=== PATIENT | female | born 1990 | race Caucasian/White ===

== ENCOUNTER → 2017-10-03 10:15 | Outpatient (CLI) | payer SELFPAY ==
[2017-10-03 12:02] LABS: Free T3 4.1 pg/mL (2.18-3.98)
== END ==
PROVIDERS: Family Provider Family Medicine; PCP Family Medicine
DX: E03.9 Hypothyroidism, unspecified (principal)
CPT/HCPCS: 36415; 84481

== ENCOUNTER → 2020-04-20 10:24 | Outpatient (CLI) | payer MEDICAID, SELFPAY ==
[2020-02-22 15:16] VITALS: BMI 34.2
[2020-04-20 12:39] LABS: Thyroid Stim Hormone (TSH) 0.94 uIU/mL (0.358-3.74)
== END ==
PROVIDERS: PCP Family Medicine; Referring Provider Internal Medicine Endocrinology, Diabetes & Metabolism; Visit Provider Internal Medicine Endocrinology, Diabetes & Metabolism
DX: E03.8 Other specified hypothyroidism (principal); E06.3 Autoimmune thyroiditis
CPT/HCPCS: 36415; 84439; 84443

== ENCOUNTER 2020-11-02 21:08 | Emergency (ER) | payer MEDICAID, SELFPAY ==
[2020-02-22 15:16] VITALS: BMI 34.2
[2020-11-02 21:09] VITALS: BP 103/69; PULSE 90; RESP 16; TEMP 36.2; O2SAT 98; BMI 41.9
[2020-11-02 21:33] LABS: Mucous, Urine 0 SEEN /hpf (<or=2+); Red Blood Cells-Urine 0 SEEN /hpf (0-5); White Blood Cells 0 SEEN /hpf (0-5)
[2020-11-02 21:42] LABS: Color, Urine Yellow (Yellow); Glucose, Dipstick Normal (Normal); Ketone-Dipstick 5 mg/dl (Negative); Leukocyte Esterase-Dipstick Negative /ul (Negative); Nitrite-Dipstick Negative (Negative); Occult Blood-Urine Negative /ul (Negative); Protein-Dipstick Negative (Negative); Specific Gravity, Urine 1.015 (1.002-1.030); Urine Bilirubin Dipstick Negative (Negative); Urine Clarity Sl. Cloudy (Clear); Urine Urobilinogen Normal (Normal)
--- NOTE | 2020-11-02 21:59 | CT_ITS ---
INDICATION: Lower abd pain EXAMINATION: CT Abdomen And Pelvis W/O Contrast Injection TECHNIQUE: Helically acquired images were obtained of the abdomen and pelvis without the use of IV contrast. A radiation dose optimization technique was used for this scan. Oral contrast: None. COMPARISON: None FINDINGS: Evaluation of the solid organs and vascular structures is limited without intravenous contrast. Visualized lung bases: Ground glass opacities in the lung bases. Liver: Unremarkable Gallbladder: Surgically absent. Spleen: Unremarkable Pancreas: Unremarkable Adrenal Glands: Unremarkable Kidneys: Unremarkable Vasculature: Unremarkable GI Tract: Scattered diverticula throughout the colon without evidence of inflammation. The appendix is not visualized. Lymphadenopathy: None Peritoneum: No ascites. Bladder: Unremarkable Reproductive organs: 4.6 x 6.7 cm thin walled cystic lesion in the right adnexa, most likely originating from the right ovary. Bones/Soft tissues: Mild scattered degenerative changes of the visualized spine. CT/Abdomen/Pelvis without Cont IMPRESSION: 7 cm cystic lesion in the right ovary is indeterminate. Recommend pelvic US for further evaluation. Groundglass opacities in the bilateral lung bases could represent infection and/or edema. Diverticulosis. Electronically Signed: Tong Alegria MD at 23:33 EDT Tel , Service support ,
[2020-11-02 22:03] LABS: Bacteria 1+ /hpf (None Seen); Squamous Epithelial Cells - UA 5-10 SEEN /hpf (5-10)
[2020-11-02] MEDS: 0.9% Normal Saline 1,000 ML 1000 ML IV (22:13)
[2020-11-02] MEDS: Ondansetron 4 MG/2 ML Vial IV (22:14)
[2020-11-02] MEDS: Morphine 4 MG/ML Syringe IV (22:14)
[2020-11-02 22:28] LABS: Absolute Lymphocyte Count 2.19 X10^3/uL (0.83-4.51); Absolute Neutrophil Count 5.8 X10^3/uL (2.0-7.7); Basophil# 0.03 X10^3/uL; Basophil% 0.3 % (0-1); Eosinophil# 0.21 X10^3/uL; Eosinophils% 2.4 % (0-5); Hematocrit 43.5 % (37-47); Hemoglobin 14.3 g/dL (12.0-15.0); Lymphocyte # 2.19 X10^3/ul (0.83-4.51); Lymphocyte % 24.9 % (19-41); Mean Corp Hgb Conc 32.9 g/dL (32-36); Mean Corpuscular Hgb 30.4 pg (27.0-32.0); Mean Corpuscular Volume 92.6 fL (81-99); Mean Platelet Vol. 10.7 fl (6.2-12.0); Monocyte# 0.57 X10^3/uL; Monocyte% 6.5 % (0-10); NRBC Flagged by Analyzer 0 % (0-5); Neutrophil # 5.75 X10^3/uL (2.7-7.7); Neutrophil % 65.6 % (47-70); Platelet Count 158 K/mm3 (150-450); RBC Distribution Width CV 12.4 % (11.6-14.6); RBC Distribution Width SD 42.4 fl (35.1-43.9); White Blood Count 8.8 K/mm3 (4.4-11.0)
[2020-11-02 22:29] LABS: POSITIVE COUNT NO; POSITIVE DIFFERENTIAL NO; POSITIVE MORPHOLOGY NO
[2020-11-02 22:41] LABS: Internal QC Validated? YES +Cl - CLEAR BKGD; Pregnancy, Serum, hCG Quali. NEGATIVE Negative
[2020-11-02 22:50] LABS: AST(SGOT) 20 U/L (15-37); Alanine Aminotransfer ALT/SGPT 35 U/L (13-56); Albumin, Serum 3.2 g/dL (3.2-5.0); Alkaline Phosphatase 97 U/L (45-117); Anion Gap 6 (5-15); BUN 9 mg/dL (7-18); BUN/Creat Ratio 12.1 RATIO (10-20); Calcium,Total 8.4 mg/dL (8.5-10.1); Chloride 109 mmol/L (98-107); Creatinine, Serum 0.74 mg/dL (0.55-1.02); EST Glomerular Filtration Rate 96 mL/min (>60); Est Glom Filt Rate - Afr Amer 116 mL/min (>60); Estimated Creatinine Clearance 102.17 ml/min; Globulin 3.2 g/dL (2.2-4.2); Glucose 85 mg/dL (74-106); Potassium 3.4 mmol/L (3.5-5.1); Protein, Total 6.4 g/dL (6.4-8.2); Sodium Level 142 mmol/L (136-145)
--- NOTE | 2020-11-03 00:08 | EDS_ITS ---
HPI HPI - GI History of Present Illness Chief Complaint: Abd Pain Narrative Narrative: 30-year-old female reports that she has abdominal pain again 10 days ago. It is gradually gotten worse. It is aching, cramping pain is 10 out of 10 in severity. She states is worsened by lifting heavy stuff. She relieved by a hot water bottle. She had nausea without vomiting. She had 1 episode of diarrhea. No blood in her stools or black tarry stools. No dysuria or frequency. She reports her last menstrual period was 4 weeks ago. No vaginal bleeding or discharge. Patient reports that she went to a different emergency department yesterday and had blood work and a UA that were negative. She did not have a CT. She does report she had similar symptoms previously. She had a colonoscopy [address] Yonis Russo. [facility] Medical History (Updated 11/03/20 @ 00:[address] Edy Pace MD) Gastrointestinal allergy syndrome Headache Hx of back injury Hx of hearing loss Hx: UTI (urinary tract infection) Hypothyroidism PTSD (post-traumatic stress disorder) Seizure Home Medications clobazam 10 mg tablet 10 mg PO DAILY 02/22/20 [History Last Taken Unknown] clonazepam 0.5 mg tablet 0.5 mg PO DAILY 02/22/20 [History Last Taken Unknown] prazosin 2 mg capsule 2 mg PO QHS 02/22/20 [History Last Taken Unknown] topiramate 200 mg capsule,extended release 24 hr 200 mg PO BID cap 02/22/20 [History Last Taken Unknown] hydrocodone-acetaminophen 1 tab PO Q6H PRN 3 Days #10 tab 11/03/20 [Rx Last Taken Unknown] naproxen 500 mg PO BID #14 tab 11/03/20 [Rx Last Taken Unknown] Allergy/AdvReac Type Severity Reaction Status Date / Time No Known Allergies Allergy Unverified 11/02/20 21:11 Family History Other Anxiety CVA (cerebral vascular accident) Depression Heart disease Hypertension Surgical History Hx of cholecystectomy Social History Smoking Status: Current some day smoker alcohol intake: former substance use type: does not use ROS ROS ED Constitutional Constitutional ED: Denies chills, fever(s) or sweats Eyes Eyes: Denies change in vision ENT ENT ED: Denies sore throat Cardiovascular Cardiovascular: Denies chest pain Respiratory/Chest Respiratory/Chest: Denies cough, dyspnea or dyspnea on exertion Gastrointestinal Gastrointestinal: Reports abdominal pain, diarrhea, nausea and vomiting; Denies melena Genitourinary Genitourinary ED: Denies dysuria or urinary frequency Musculoskeletal Musculoskeletal: Denies myalgias Integumentary Denies rash Neurologic Neurologic: Denies headache(s), paresthesias or weakness EXAM Physical Exam Const Vital Signs: 11/02/20 21:09 Temperature 97.2 F L Temperature Source Temporal Pulse Rate 90 Respiratory Rate 16 Blood Pressure 103/69 Blood Pressure Mean 80 Pulse Ox 98 Oxygen Delivery Method Room Air Positive well nourished and well developed General Appearance ED: well developed HEENT Reports normocephalic and head/scalp atraumatic Eyes PERRL Neck no lymphadenopathy, supple and no JVD General: Negative for tenderness Resp normal respiratory effort and clear to auscultation bilaterally Cardio regular rate, regular rhythm and no murmurs GI normal to inspection, nondistended, normoactive bowel sounds and non-distended GI Narrative: Moderate diffuse tenderness palpation that is worst over the lower abdomen. There is no localized pain in the right lower quadrant. No guarding, rebound, or peritoneal signs. Auscultation: normoactive bowel sounds Palpation: soft Back/Spine Back/Spine Narrative: Nontender. Extremity General Extremety ED: Negative for edema or tenderness General Extremity: Negative for edema Neuro oriented x3, CN's II-XII intact bilaterally and no sensory deficits noted Sensorium / Orientation: alert Motor Exam: strength 5/5 throughout Psych mental status grossly normal Skin no rashes or lesions noted MDM MDM Lab Data Labs: Laboratory Results - last 24 hr 11/02/20 11/02/20 11/02/20 21:25 22:20 22:20 WBC 8.8 RBC 4.70 Hgb 14.3 Hct 43.5 MCV 92.6 MCH 30.4 MCHC 32.9 RDW Std Deviation 42.4 RDW Coeff of Bj 12.4 Plt Count 158 MPV 10.7 Immature Gran % (Auto) 0.300 Neut % (Auto) 65.6 Lymph % (Auto) 24.9 [place] % (Auto) 6.5 Eos % (Auto) 2.4 Baso % (Auto) 0.3 Absolute Neuts (auto) 5.8 Absolute Lymphs (auto) 2.19 Nucleated RBC % 0 Sodium 142 Potassium 3.4 L Chloride 109 H Carbon Dioxide 27.0 Anion Gap 6 BUN 9 Creatinine 0.74 Estim Creat Clear Calc 102.17 Est GFR (MDRD) Af Amer 116 Est GFR (MDRD) Non-Af 96 BUN/Creatinine Ratio 12.1 Glucose 85 Calcium 8.4 L Total Bilirubin 0.40 AST 20 ALT 35 Alkaline Phosphatase 97 Total Protein 6.4 Albumin 3.2 Globulin 3.2 Albumin/Globulin Ratio 1.0 Serum , Qual Urine Color Yellow Urine Clarity Sl. Cloudy Urine pH 8.0 Ur Specific [place] 1.015 Urine Protein Negative Urine Glucose (UA) Normal Urine Ketones 5 H Urine Occult Blood Negative Urine Nitrite Negative Urine Bilirubin Negative Urine Urobilinogen Normal Ur Leukocyte Esterase Negative Urine RBC 0 SEEN Urine WBC 0 SEEN Ur Squamous Epith Cells 5-10 SEEN Urine Bacteria 1+ Urine Mucus 0 SEEN 11/02/20 22:20 WBC RBC Hgb Hct MCV MCH MCHC RDW Std Deviation RDW Coeff of Bj Plt Count MPV Immature Gran % (Auto) Neut % (Auto) Lymph % (Auto) [place] % (Auto) Eos % (Auto) Baso % (Auto) Absolute Neuts (auto) Absolute Lymphs (auto) Nucleated RBC % Sodium Potassium Chloride Carbon Dioxide Anion Gap BUN Creatinine Estim Creat Clear Calc Est GFR (MDRD) Af Amer Est GFR (MDRD) Non-Af BUN/Creatinine Ratio Glucose Calcium Total Bilirubin AST ALT Alkaline Phosphatase Total Protein Albumin Globulin Albumin/Globulin Ratio Serum , Qual NEGATIVE Urine Color Urine Clarity Urine pH Ur Specific [place] Urine Protein Urine Glucose (UA) Urine Ketones Urine Occult Blood Urine Nitrite Urine Bilirubin Urine Urobilinogen Ur Leukocyte Esterase Urine RBC Urine WBC Ur Squamous Epith Cells Urine Bacteria Urine Mucus Radiography Diagnostic Testing: Radiology Impression Abdomen/Pelvis CT 11/02/20 21:59 IMPRESSION: 7 cm cystic lesion in the right ovary is indeterminate. Recommend pelvic US for further evaluation. Groundglass opacities in the bilateral lung bases could represent infection and/or edema. Diverticulosis. Electronically Signed: Tong Alegria MD at 23:33 EDT Tel , Service support , Treatment and Re-Evaluation Comments:: Emergency department course: Patient was initially treated with morphine and Zofran IV. She continued to experience pain she. She was given Toradol IV. She is resting more comfortably. Treatment plan: Patient does not have a registered respiratory technician. She will be discharged with naproxen and [place]. Instructed to follow-up Dr. John Russo within 3 to 5 days for another exam. She has had gradually increasing pain over the course of 10 days. I do not think that this represents an ovarian torsion. I do not think that calling an ultrasound at this time of night is indicated. Return to the emergency department for any worsening symptoms. Disposition: To home in improved and stable condition. Discharge Plan Triage Chief Complaint: Abd Pain ED Provider: Edy Pace Dx/Rx/DC Orders Clinical Impression: Ovarian cyst Instructions: ED Ovarian Cyst Prescriptions: New hydrocodone-acetaminophen 5-325 mg tablet 1 tab PO Q6H PRN (Reason: pain) 3 Days Qty: 10 RF: 0 naproxen 500 MG tablet 500 mg PO BID Qty: 14 RF: 0 No Action clobazam 10 mg tablet 10 mg PO DAILY RF: 0 clonazepam [Klonopin] 0.5 mg tablet 0.5 mg PO DAILY RF: 0 prazosin 2 mg capsule 2 mg PO QHS RF: 0 topiramate 200 mg capsule,extended release 24hr 200 mg PO BID RF: 0 Primary Care Provider: Julián Garcia Referrals: Julián Garcia MD [Primary Care Provider] - oJhn Russo MD [STAFF PHYSICIAN] - 3-5 Days
[2020-11-03 00:18] VITALS: RESP 14
== END 2020-11-03 00:35 | disposition home or self-care (01) ==
LOC: ED 22:00
PROVIDERS: Emergency Provider Emergency Medicine; PCP Family Medicine
DX: N83.201 Unspecified ovarian cyst, right side (principal); E03.9 Hypothyroidism, unspecified; F43.10 Post-traumatic stress disorder, unspecified; G40.909 Epilepsy, unspecified, not intractable, without status epilepticus; Z87.440 Personal history of urinary (tract) infections; Z79.899 Other long term (current) drug therapy
CPT/HCPCS: 74176; 80053; 81001; 84703; 85025; 96361; 96374; 96375; 99282; J7030; A4216; J2405

== ENCOUNTER 2020-11-20 06:07 | Day surgery (SDC) | payer MEDICAID, SELFPAY ==
[2020-11-20] VITALS (8 sets, daily range): BP systolic 97–112; BP diastolic 58–82; PULSE 55–93; RESP 16; TEMP 36.2–36.7; O2SAT 98–100; BMI 39.8
[2020-11-20] MEDS: Lactated Ringers 1,000 ML 120 ML IV ×2 (06:45→08:36)
[2020-11-20 06:49] LABS: Internal QC Validated? YES +Cl - CLEAR BKGD; Pregnancy, Urine Negative Negative
[2020-11-20 07:05] LABS: International Normalized Ratio 1.1; Prothrombin Time (Protime)PT. 13.1 SECONDS (11.7-14.9)
--- NOTE | 2020-11-20 07:26 | PCM.HP.BLA ---
History and Physical Date of Admission: 11/20/20 Chief complaint: Abdominal pain History of present illness: 30-year-old G0 arrived to ER with diffuse abdominal pain found on CT to have ovarian cyst. Arrived to office with abdominal pain right greater than the left and found to have ovarian cyst. Patient denies headache, chest pain, shortness of breath, nausea vomiting, diarrhea, constipation, weight loss, fevers, chills. Obstetric history: G0 Past medical history: Epilepsy Medications: Clobazam, Klonopin, prazosin, medical marijuana Past surgical history: Laparoscopic cholecystectomy Social history half pack per day smoker, medical marijuana use, denies alcohol use Allergies: No known drug allergies Family history: Denies history of DVT or PE Review of systems: Besides above pertinent positives a full review of systems was performed found to be negative Physical exam: Vitals: Blood pressure 106/74 pulse 73 respiratory rate 16 temperature 97.7 pulse ox 99% on room air General: Normal-appearing no acute distress HEENT: Normocephalic atraumatic no cervical lymphadenopathy Cardiac/respiratory: No use of accessory muscles nonlabored breathing Abdomen: Soft, mildly tender in bilateral lower quadrants right greater than left, no rebound tenderness or guarding, positive bowel sounds Extremities: No peripheral edema normal peripheral pulses Psych: Normal affect normal demeanor nonpressured speech Assessment and plan: 30-year-old G0 with abdominal pain found to have 7 cm right ovarian cyst with flow to both ovaries. Today for diagnostic laparoscopy, right ovarian cystectomy. Patient understands the risk of the procedure include but are not limited to visceral or vascular injury, prolonged hospitalization, blood loss need for transfusion, reoperation. Patient states understanding wish to proceed. All questions answered consent was signed.
--- NOTE | 2020-11-20 07:30 | CYST_PTH ---
PATIENT: GABRIELLA COLLINS LOC: [facility] [place][id number] AGE/SX: 30/F ROOM: RE11/20/[address]: Dr. John Russo MD : 1990 BED: DIS: 11/20/2020 SPEC #: [id number] RECD: 11/20/20 10:09 STATUS: ANTON PEDRO #: [id number] TI: 11/20/20 07:[address]: John Russo DEPT: SURGICAL PATHOLOGY RECD BY: Kassidy Jones ENTERED: 11/20/20 12:09 SP TYPE: Cyst OTHR DR: Dr. Julián Garcia MD Tissues: OVARIAN CYST Procedures: Surgery Specimen Level IV HEADER OPERATION: Diagnostic laparoscopy, ovarian cystectomy PRE-OP DIAGNOSIS: Ovarian cyst TISSUE SUBMITTED: Right ovarian cyst MICROSCOPIC DIAGNOSIS Right ovarian cyst, cystectomy: Consistent with physiologic follicular cysts. SJ:tahmina 11/21/2020 MICROSCOPIC DESCRIPTION Slides are reviewed. GROSS DESCRIPTION Received in fixative is one container labeled with the patient's name and designated right ovarian cyst. The specimen consists of two pieces of tissue consistent with portion of previously opened cyst. The larger piece measures 3 x 3 x 1 cm and appears to consist of biloculated cyst. The outer surface is inked. The smaller piece measures 3 x 0.5 x 0.1 cm. Both pieces are serially sectioned. The entire specimen is submitted in three cassettes. / SJ:tahmina 11/20/20 TC:5 [facility]: [id number]
[2020-11-20 07:54] LABS: Thyroid Stim Hormone (TSH) < 0.01 uIU/mL (0.358-3.74)
--- NOTE | 2020-11-20 08:23 | PCM.DC ---
Discharge Instructions Diet Discharge Diet: No restrictions Activity Discharge Activity: Return to Normal Activity, May Drive, May Shower and - (No tub baths for 2 weeks) May resume sexual activity in: 4-6 weeks Lifting Restrictions: No lifting over 25 pounds for 2 to 3 weeks Dressing / Incision Call your doctor if your incision/area has: Continuous Slow Oozing, Sudden Increased Bleeding and Foul Smelling Discharge Call your doctor if you observe: Fever of 101 or Higher, Shortness of breath and Chest pain Follow Up Care Please Follow Up With: John Russo MD When: 2 weeks postoperatively Test Results: Test results from this visit will be discussed in further detail at your follow-up appointment, if applicable. Discharge Plan Admission Attending Provider: John Russo Primary Care Provider: Julián Garcia Discharge Orders/Prescriptions Prescriptions: No Action clonazepam [Klonopin] 0.5 mg tablet 0.5 mg PO BID RF: 0 prazosin 2 mg capsule 4 mg PO QHS RF: 0 topiramate 200 mg capsule,extended release 24hr 400 mg PO DAILY RF: 0 naproxen 500 MG tablet 500 mg PO BID Qty: 14 RF: 0 hydrocodone-acetaminophen 5-325 mg tablet 1 tab PO Q6H PRN (Reason: pain) 2 Days Qty: 10 RF: 0 Amour Thyroid 240 mg PO/SL DAILY RF: 0 ondansetron HCl [Zofran] 4 mg Tablet 4 mg PO Q6H PRN (Reason: Nausea) RF: 0 famotidine 20 mg Tablet 20 mg PO DAILY PRN (Reason: Indigestion) RF: 0 topiramate 200 mg Tablet 200 mg PO QHS RF: 0 L norgest/e.estradiol-e.estrad [Ashlyna] 0.15 mg-30 mcg (84)/10 mcg (7) Tablets,Dose Pack,3 Month 1 tab PO DAILY RF: 0 Disposition Discharge Orders: Discharge Patient (Routine); Ordered 11/20/20 Ordered By: Dr. John Russo
--- NOTE | 2020-11-20 08:25 | PCM.OPRPT ---
Report of Operation Date of Procedure: 11/20/20 Pre-Operative Diagnosis: Right ovarian cyst, abdominal pain Post-Operative Diagnosis: Right ovarian cyst Surgery/Procedure Performed:: Diagnostic laparoscopy right ovarian cystectomy Description of Surgical Findings:: Surgeon: John Russo MD Anesthesia: General EBL: 5 cc Urine output: 200 cc IV fluids: 1000 cc Complications: None Specimen: Right ovarian cyst Findings: Normal uterus, tubes. Normal left ovary. Right ovarian cyst clear fluid filled cyst thin septation, sent to pathology. No signs of torsion in either ovary. Appendix without inflammation or swelling. No other pathology noted Consent: 30-year-old with abdominal pain found to have right ovarian cyst for diagnostic laparoscopy right ovarian cystectomy. Patient understood the risk of the procedure include but are not limited to visceral or vascular injury, prolonged hospitalization, blood loss and need for transfusion, reoperation. Patient stated understanding and wish to proceed. And consent signed. Procedure: Patient was brought back to the OR where general anesthesia found to be adequate. Patient was prepared and draped in a dorsolithotomy position with yellowfin stirrups. Cervical dilators were used to dilate the cervix. Uterine manipulator was placed. Varies needle was inserted at the umbilicus, water safety test was passed, abdomen was insufflated. 5 mm supraumbilical trocar inserted. Laparoscope was inserted and above findings were noted. Left lower quadrant 5 mm trocar was inserted under direct visualization. 8 mm trocar was inserted in the right lower quadrant under direct visualization. Using atraumatic grasper and a LigaSure device right ovarian cystectomy was performed. Good hemostasis was noted. Abdominal survey with the laparoscope showed no other pathology and above findings were noted. No signs of ovarian torsion. Ovarian cyst sent to pathology. Trochars removed under direct visualization. Good hemostasis was noted. Abdomen was desufflated. Skin was closed in subcuticular fashion. All counts correct x2. Patient tolerated procedure well and brought to recovery in stable condition. transcribing machine mechanic: Sadi Vora
[2020-11-20] MEDS: Acetaminophen 500 MG Tablet 1000 MG PO (11:29)
[2020-11-20] MEDS: oxyCODONE 5 MG Tablet PO (11:29)
[2020-11-23 16:53] LABS: Clonazepam Level 14 ng/mL (20-70)
== END 2020-11-20 13:03 | disposition home or self-care (01) ==
LOC: SDC 06:08 → AC 06:08
PROVIDERS: Anesthesiology; PCP Family Medicine; Referring Provider Obstetrics & Gynecology; Visit Provider Obstetrics & Gynecology
PROC: (CPT 49320; principal; 2020-11-20 07:15)
DX: N83.201 Unspecified ovarian cyst, right side (principal); K21.9 Gastro-esophageal reflux disease without esophagitis; E03.9 Hypothyroidism, unspecified; F43.10 Post-traumatic stress disorder, unspecified; G40.909 Epilepsy, unspecified, not intractable, without status epilepticus; G43.909 Migraine, unspecified, not intractable, without status migrainosus; Z87.19 Personal history of other diseases of the digestive system; Z87.440 Personal history of urinary (tract) infections; Z79.899 Other long term (current) drug therapy
CPT/HCPCS: 00840; 58662; 80346; 81025; 84443; 85610; 85730; 86850; 86900; 86901; 87426; 88305; C9803; J7120; G0480; J2405

== ENCOUNTER → 2021-03-13 10:38 | Outpatient (CLI) | payer MEDICAID, SELFPAY ==
[2021-03-15 21:13] LABS: Lamotrigine (Lamictal) Level < 1.0 ug/mL (2.0-20.0); Topiramate 5.5 ug/mL (2.0-25.0)
== END ==
PROVIDERS: PCP Family Medicine
DX: G40.309 Generalized idiopathic epilepsy and epileptic syndromes, not intractable, without status epilepticus (principal)
CPT/HCPCS: 36415; 80201; 82542

== ENCOUNTER → 2021-06-14 | Outpatient (CLI) | payer MEDICAID, SELFPAY ==
[2021-06-16 02:07] LABS: Chlamydia By Nucleic Acid AMP Negative (Negative)
[2021-06-16 07:45] LABS: Gonococcus By Nucleic Acid AMP Negative (Negative)
[2021-06-19 13:33] LABS: HPV APTIMA, High Risk Negative (Negative)
== END | disposition home or self-care (01) ==
PROVIDERS: PCP Family Medicine; Visit Provider Obstetrics & Gynecology
DX: Z11.3 Encounter for screening for infections with a predominantly sexual mode of transmission (principal); Z12.4 Encounter for screening for malignant neoplasm of cervix
CPT/HCPCS: 87491; 87591; 87624; 88175; G0145

== ENCOUNTER 2023-08-06 09:38 | Emergency (ER) | payer MEDICAID, SELFPAY ==
[2023-08-06 09:39] VITALS: BP 107/76; PULSE 81; RESP 16; TEMP 36.4; O2SAT 100; BMI 34.0
--- NOTE | 2023-08-06 10:06 | US_ITS ---
STUDY: ULTRASOUND OF THE FEMALE PELVIS - COMPLETE REASON FOR EXAM: Female, 32 years old. Cyst, torsion, pain -- RT PELVIC PAIN X 1 WEEK -- RT O CYST REMOVED 2020 LMP: August 04, 2023. TECHNIQUE: Transvaginal TECHNICAL QUALITY: Adequate. COMPARISON: None. FINDINGS: The uterus is anteverted and is in a midline position. The uterus measures 7.4 cm x 3.6 cm x 3.2 cm. There is a Nabothian cyst of the cervix. The endometrium measures 4.2 mm in thickness, and is hyperechoic. There is no demonstrated endometrial mass. There is no demonstrated myometrial mass. I.U.D. - The patient does not have an I.U.D. The right ovary is visualized. The right ovary measures 2 cm x 2.1 cm x 1.8 cm. There is no right ovarian cyst or ovarian mass. There is no visualized right adnexal mass or complex lesion. There is normal arterial and normal venous vascularity. The left ovary is visualized. The left ovary measures 2.2 cm x 2.1 cm x 1.8 cm. There is no left ovarian cyst or ovarian mass. There is no visualized left adnexal mass or complex lesion. There is normal arterial and normal venous vascularity. There is minimal fluid in the cul-de-sac. Low level echoes are seen within the bladder. Questionable bladder infection. US/Transvaginal Non- IMPRESSION: Normal female pelvis. Low-level echoes are seen within the urinary bladder. Questionable bladder infection. Electronically Signed: Burton Roman MD at 11:56 EST ,
--- NOTE | 2023-08-06 10:08 | ED.VIS.FEGU ---
HPI HPI - Female History of Present Illness Chief Complaint: Vag Bleeding Informant: patient Narrative Narrative: Patient presents with spotting and pelvic cramping. Patient states she has a history of ovarian cyst. She had it removed 3 or 4 years ago. She thinks it was the right side. She is also had cholecystectomy. For about 4 days she has been having vaginal spotting that is much less than a normal cycle. But she should be on her menstrual cycle now. She is having more cramping than once a normal menstrual cycle though. Normally she really does not have much pain. She has mostly cramping in the right pelvic area and a little bit in her back. No urinary changes. No diarrhea. She states when the pain is bad she has had mild nausea but she is eating and drinking normally and no vomiting. No fevers. She is on control. It was changed to a different type about 2 months ago. She is not sure specifically what the change was. [facility] Medical History Easy bruising Excessive bleeding Gastric reflux Gastrointestinal allergy syndrome Headache History of colitis History of edema History of hiatal hernia Hx of back injury Hx of hearing loss Hx of sebaceous cyst Hx: UTI (urinary tract infection) Hypothyroidism Injury of head and neck Leg cramps Low iron Marijuana use Migraine headache PTSD (post-traumatic stress disorder) Seizure Seizures Smoker Thyroid disease Wears dentures Wears glasses Home Medications clonazepam 0.5 mg tablet (Klonopin) 0.5 mg PO BID 02/22/20 [History Last Taken 11/20/20] prazosin 2 mg capsule 4 mg PO QHS 02/22/20 [History Last Taken 11/19/20] topiramate 200 mg capsule,extended release 24 hr 400 mg PO DAILY seizure/migraines 02/22/20 [History Last Taken 11/20/20] Amour Thyroid 150 mg PO/SL DAILY 11/13/20 [History Last Taken 11/20/20] L norgest/E estradiol-E estrad 0.15 mg-30 mcg (84)/10 mcg(7) tabs,3mos (Ashlyna) 1 tab PO DAILY 11/13/20 [History Last Taken 11/19/20] Allergy/AdvReac Type Severity Reaction Status Date / Time No Known Allergies Allergy Verified 08/06/23 09:38 Family History Other Anxiety CVA (cerebral vascular accident) Depression Heart disease Hypertension Surgical History History of esophagogastroduodenoscopy (EGD) Hx of cholecystectomy Hx of colonoscopy Social History Smoking Status: Current some day smoker tobacco type: cigarettes alcohol intake: former substance use type: does not use ROS ROS ED Constitutional Constitutional ED: Denies chills or fever(s) ENT ENT ED: Denies sore throat Cardiovascular Cardiovascular: Denies chest pain or palpitations Respiratory/Chest Respiratory/Chest: Denies cough or dyspnea Gastrointestinal Gastrointestinal: Reports abdominal pain and nausea; Denies constipation, diarrhea, melena or vomiting Genitourinary Genitourinary ED: Reports urinary frequency and other Details: See history of present illness Musculoskeletal Musculoskeletal: Denies myalgias Integumentary Denies rash Neurologic Neurologic: Denies headache(s) Endocrine Endocrinology: Denies polydipsia or polyuria Hematologic/Lymphatic Hematologic/Lymphatic: Denies easy bleeding or easy bruising Allergic/Immunologic Allergic/Immunologic ED: Denies urticaria EXAM Physical Exam Narrative Exam Narrative: CONSTITUTIONAL: Patient is nontoxic in appearance. The patient looks comfortable. HEENT: No notable trauma. Mucous membranes moist. EYES: No c pallor. CARDIOVASCULAR: Regular rate. Regular rhythm. No notable murmur. No JVD. RESPIRATORY: No respiratory distress. Breathing is unlabored. No wheezes. Saturations are normal at 100% on room air showing no hypoxia. GASTROINTESTINAL: Not distended. Bowel sounds are normal. No tenderness. No guarding. No rebound. No palpable mass. No bruit. Patient really does not seem to have tenderness down the low in the pelvic area on the right. She states it cramps and is sore but is not really tender on exam. GENITOURINARY: No tenderness over the bladder. No CVA tenderness. MUSCULOSKELETAL: Atraumatic. No peripheral edema. No tenderness. NEUROLOGICAL: Patient is alert and appropriate. No focal deficit noted. SKIN: No noted rashes. No pallor or diaphoresis. PSYCHIATRIC: Patient is calm. Mood is appropriate. Const Vital Signs: 08/06/23 09:39 Temperature 97.6 F L Temperature Source Temporal Pulse Rate 81 Respiratory Rate 16 Blood Pressure 107/76 Blood Pressure Mean 86 Pulse Ox 100 Oxygen Delivery Method Room Air MDM MDM MDM Narrative Medical decision making narrative: Patient CBC is normal including white count hemoglobin and platelets. Patient's urine looks completely clean. Patient's ultrasound normal mole ovaries. But there is question of some bladder thickening irritation that they thought may be related to infection. Even though the patient's ultrasound indicates possible infection this is likely her interstitial cystitis which she has a history of. She does take Pyridium for this on a as needed basis. She has it at home and I recommend she take this for few days. Patient's repeat exam shows that her abdomen is still really benign. She states she feels discomfort in the suprapubic and right area but there is absolutely no tenderness. This been going on for days without fever or white count or tenderness I do not think this needs imaging. Patient does bring up that she is also feels like she is developing constipation. She used to have a lot of problems with this but it got better on meds. She has been having more problems since summer. She still eating and drinking fine. But her bowels are not moving as much is normal. We recommend MiraLAX or [id number]-puapbge Dulcolax. She talked that sometimes this will get her nauseated so I will write for Zofran so she has that available. We did talk about returning if she develops any fever, recurrent vomiting or localization of pain. Lab Data Attestation: I reviewed the patient's lab results. Labs: Laboratory Results - last 24 hr 08/06/23 10:25 WBC 5.8 RBC 4.57 Hgb 14.4 Hct 43.3 MCV 94.7 MCH 31.5 MCHC 33.3 RDW Std Deviation 41.4 RDW Coeff of Bj 11.9 Plt Count 115 L MPV 10.8 Immature Gran % (Auto) 0.300 Neut % (Auto) 68.3 Lymph % (Auto) 22.1 [place] % (Auto) 5.7 Eos % (Auto) 3.1 Baso % (Auto) 0.5 Absolute Neuts (auto) 3.9 Absolute Lymphs (auto) 1.28 Nucleated RBC % 0 Serum , Qual NEGATIVE Urine Color Yellow Urine Clarity Clear Urine pH 6.5 Ur Specific [place] 1.010 Urine Protein Negative Urine Glucose (UA) Normal Urine Ketones Negative Urine Occult Blood 150 H Urine Nitrite Negative Urine Bilirubin Negative Urine Urobilinogen Normal Ur Leukocyte Esterase Negative Urine RBC 0 SEEN Urine WBC 0 SEEN Ur Squamous Epith Cells 0 SEEN Urine Bacteria 0 SEEN Urine Mucus 0 SEEN Radiography Diagnostic Testing: Clinical Impression(s) from Imaging Studies Transvaginal US 08/06/23 10:06 IMPRESSION: Normal female pelvis. Low-level echoes are seen within the urinary bladder. Questionable bladder infection. Electronically Signed: Burton Roman MD at 11:56 EST , Discharge Plan Triage Chief Complaint: Vag Bleeding ED Provider: Alek Meeks Dx/Rx/DC Orders Clinical Impression: History of constipation, Cystitis, interstitial Instructions: Interstitial Cystitis Tx Prescriptions: No Action clonazepam [Klonopin] 0.5 mg tablet 0.5 mg PO BID prazosin 2 mg capsule 4 mg PO QHS topiramate 200 mg capsule,extended release 24hr 400 mg PO DAILY Amour Thyroid 150 mg PO/SL DAILY L norgest/e.estradiol-e.estrad [Ashlyna] 0.15 mg-30 mcg (84)/10 mcg (7) Tablets,Dose Pack,3 Month 1 tab PO DAILY Primary Care Provider: Eladia Moscoso NP Referrals: Julián Garcia MD [Non-Staff] - 3-5 Days Disposition Disposition: Home, Self Care
[2023-08-06] MEDS: Ondansetron 4 MG/2 ML Vial IV (10:22)
[2023-08-06] MEDS: Ketorolac 15 MG/ML Vial IV (10:22)
[2023-08-06 10:30] LABS: Bacteria 0 SEEN /hpf (None Seen); Mucous, Urine 0 SEEN /hpf (<or=2+); Red Blood Cells-Urine 0 SEEN /hpf (0-5); Squamous Epithelial Cells - UA 0 SEEN /hpf (5-10); White Blood Cells 0 SEEN /hpf (0-5)
[2023-08-06 10:34] LABS: Color, Urine Yellow (Yellow); Glucose, Dipstick Normal (Normal); Ketone-Dipstick Negative (Negative); Leukocyte Esterase-Dipstick Negative /ul (Negative); Nitrite-Dipstick Negative (Negative); Occult Blood-Urine 150 /ul (Negative); Protein-Dipstick Negative (Negative); Urine Bilirubin Dipstick Negative (Negative); Urine Clarity Clear (Clear); Urine Urobilinogen Normal (Normal); Urine pH 6.5 (5.0 - 8.0)
[2023-08-06 10:36] LABS: Absolute Lymphocyte Count 1.28 X10^3/uL (0.83-4.51); Absolute Neutrophil Count 3.9 X10^3/uL (2.0-7.7); Basophil# 0.03 X10^3/uL; Basophil% 0.5 % (0-1); Eosinophil# 0.18 X10^3/uL; Eosinophils% 3.1 % (0-5); Hematocrit 43.3 % (37-47); Hemoglobin 14.4 g/dL (12.0-15.0); Lymphocyte # 1.28 X10^3/ul (0.83-4.51); Lymphocyte % 22.1 % (19-41); Mean Corp Hgb Conc 33.3 g/dL (32-36); Mean Corpuscular Hgb 31.5 pg (27.0-32.0); Mean Corpuscular Volume 94.7 fL (81-99); Mean Platelet Vol. 10.8 fl (6.2-12.0); Monocyte# 0.33 X10^3/uL; Monocyte% 5.7 % (0-10); NRBC Flagged by Analyzer 0 % (0-5); Neutrophil # 3.94 X10^3/uL (2.7-7.7); Neutrophil % 68.3 % (47-70); Platelet Count 115 K/mm3 (150-450); RBC Distribution Width CV 11.9 % (11.6-14.6); RBC Distribution Width SD 41.4 fl (35.1-43.9); Red Blood Count 4.57 M/mm3 (4.2-5.4); White Blood Count 5.8 K/mm3 (4.4-11.0)
[2023-08-06 11:06] LABS: Internal QC Validated? YES +Cl - CLEAR BKGD; Pregnancy, Serum, hCG Quali. NEGATIVE Negative
[2023-08-06 13:56] VITALS: BP 110/80; PULSE 79; RESP 17; O2SAT 99
== END 2023-08-06 13:57 | disposition home or self-care (01) ==
PROVIDERS: Emergency Provider Emergency Medicine; PCP Registered Nurse; Visit Provider Emergency Medicine
DX: N30.10 Interstitial cystitis (chronic) without hematuria (principal); G40.909 Epilepsy, unspecified, not intractable, without status epilepticus; E03.9 Hypothyroidism, unspecified; Z87.19 Personal history of other diseases of the digestive system; Z90.49 Acquired absence of other specified parts of digestive tract; R10.2 Pelvic and perineal pain; Z79.899 Other long term (current) drug therapy; F17.210 Nicotine dependence, cigarettes, uncomplicated
CPT/HCPCS: 76830; 81001; 84703; 85025; 93976; 96374; 96375; 99283; A4216; J2405

== ENCOUNTER 2024-08-17 12:57 | Emergency (ER) | payer OTHER, MEDICAID, SELFPAY ==
[2024-08-17] VITALS (11 sets, daily range): BP systolic 91–116; BP diastolic 62–89; PULSE 58–75; RESP 11–33; TEMP 36.4; O2SAT 98–100; BMI 37.3
--- NOTE | 2024-08-17 13:46 | RAD_ITS ---
PROCEDURE: CHEST 1 VIEW (PORTABLE) REASON FOR EXAM: Chest pain TECHNIQUE: Frontal view of the chest. COMPARISON: None. FINDINGS: The heart size is normal. The mediastinal contour is unremarkable. The lungs are clear. The bones are unremarkable. RAD/Chest 1 View (Portable) IMPRESSION: No radiographic evidence of acute cardiopulmonary disease Reading Location: [facility]
[2024-08-17 13:59] LABS: Absolute Lymphocyte Count 3.36 X10^3/uL (0.83-4.51); Absolute Neutrophil Count 3.8 X10^3/uL (2.0-7.7); Basophil# 0.04 X10^3/uL; Basophil% 0.5 % (0-1); Eosinophil# 0.17 X10^3/uL; Eosinophils% 2.1 % (0-5); Hematocrit 43.7 % (37-47); Lymphocyte # 3.36 X10^3/ul (0.83-4.51); Lymphocyte % 42.3 % (19-41); Mean Corp Hgb Conc 34.3 g/dL (32-36); Mean Corpuscular Volume 93.2 fL (81-99); Mean Platelet Vol. 10.9 fl (6.2-12.0); Monocyte# 0.52 X10^3/uL; Monocyte% 6.5 % (0-10); NRBC Flagged by Analyzer 0 % (0-5); Neutrophil # 3.82 X10^3/uL (2.7-7.7); Neutrophil % 48.1 % (47-70); Platelet Count 121 K/mm3 (150-450); RBC Distribution Width CV 12.5 % (11.6-14.6); RBC Distribution Width SD 42.5 fl (35.1-43.9); Red Blood Count 4.69 M/mm3 (4.2-5.4)
--- NOTE | 2024-08-17 14:06 | ED.VIS.CHEST ---
HPI History of Present Illness Chief Complaint: Chest Pain [facility] Medical History Easy bruising Excessive bleeding Gastric reflux Gastrointestinal allergy syndrome Headache History of colitis History of edema History of hiatal hernia Hx of back injury Hx of hearing loss Hx of sebaceous cyst Hx: UTI (urinary tract infection) Hypothyroidism Injury of head and neck Leg cramps Low iron Marijuana use Migraine headache PTSD (post-traumatic stress disorder) Seizure Seizures Smoker Thyroid disease Wears dentures Wears glasses Home Medications ?Medication ?Instructions ?Recorded ?Last Taken ?Type clonazepam 0.5 mg tablet (Klonopin) 0.5 mg PO BID 02/22/20 11/20/20 History prazosin 2 mg capsule 4 mg PO QHS 02/22/20 11/19/20 History topiramate 200 mg capsule,extended 400 mg PO DAILY seizure/migraines 02/22/20 11/20/20 History release 24 hr Amour Thyroid 150 mg PO/SL DAILY 11/13/20 11/20/20 History L norgest/E estradiol-E estrad 1 tab PO DAILY 11/13/20 11/19/20 History 0.15 mg-30 mcg (84)/10 mcg(7) tabs,3mos (Ashlyna) Allergy/AdvReac Type Severity Reaction Status Date / Time amoxicillin AdvReac Severe SEIZURES Verified 08/17/24 12:58 Family History Other Anxiety CVA (cerebral vascular accident) Depression Heart disease Hypertension Surgical History History of esophagogastroduodenoscopy (EGD) Hx of cholecystectomy Hx of colonoscopy Social History Smoking Status: Current some day smoker tobacco type: cigarettes alcohol intake: former substance use type: does not use EXAM Physical Exam Const Vital Signs: 08/17/24 12:58 08/17/24 13:01 08/17/24 14:57 Temperature 97.6 F L Temperature Source Oral Pulse Rate 68 75 Respiratory Rate 15 16 Blood Pressure 116/86 H 108/64 Blood Pressure Mean 96 78 Pulse Ox 99 100 98 Oxygen Delivery Method Room Air Room Air Room Air 08/17/24 15:16 08/17/24 15:30 08/17/24 15:45 Temperature Temperature Source Pulse Rate 62 58 L 60 Respiratory Rate 18 14 18 Blood Pressure 103/89 H Blood Pressure Mean 95 Pulse Ox 100 100 100 Oxygen Delivery Method Room Air 08/17/24 16:00 Temperature Temperature Source Pulse Rate 59 L Respiratory Rate 11 L Blood Pressure 91/69 Blood Pressure Mean 75 Pulse Ox 100 Oxygen Delivery Method Room Air MDM [facility] MDM Narrative Medical decision making narrative: HISTORY OF PRESENT ILLNESS: 34-year-old female presents with chest pain since last . She states it radiates to the left arm neck and jaw. She also endorses a dry cough. She further states she has had 5 days of chest pain. It is sharp, worse with movement of the upper body. Worse with exertion. Not worse with a deep breath. She denies lower extremity edema, orthopnea or paroxysmal nocturnal dyspnea. She denies any bleeding diathesis. Denies any vomiting or diarrhea. No she has been excessively fatigued. Notes she has had chills but denies productive cough. States she has had a dry cough which worsens with chest pain. Denies family or personal history of heart attacks. Denies cocaine or methamphetamine abuse. The patient denies recent surgery in the last 4 weeks or immobilization in the last 3 days, denies previous diagnosis of DVT or PE, hemoptysis, unilateral leg swelling or malignancy with treatment the last 6 months or palliative. No estrogen use noted. Patient denies sudden onset of pain, no tearing sensation, no migratory symptoms, no new numbness, weakness or loss of sensation. Patient denies family history or personal history of Connective tissue disorders (Marfan's Syndrome, Kelby Danlos etc) REVIEW OF SYSTEMS: Pertinent positives: Chest pain, cough Pertinent negatives: Focal weakness PHYSICAL EXAM: Nursing triage notes reviewed, Vital signs reviewed Constitutional: please see mdm HENT: MMM Eyes: Pupils equal round and reactive to light, Extraocular muscles intact Neck: No stridor, no JVD, full neck ROM Lungs: Clear to auscultation, No wheezing or rales. No increased work of breathing, no conversational dyspnea, no accessory muscle use, no nasal flaring. No respiratory distress noted Heart: Regular rate and rhythm, No murmurs, No rubs and No gallops, 2+ distal pulses (radial, femoral, posterior tibial) in all extremities Abdomen: Soft, there is no tenderness, rigidity, rebound or guarding, no obvious peritoneal signs, no palpable pulsatile abdominal masses, no auscultated abdominal bruit : No CVAT Extremities: No edema Neuro: No new focal neurological deficits, cranial nerves II through XII intact, 5/5 strength in all present extremities. Intact sensation to light touch in all present extremities, 2+ reflexes bilateral patella tendons. Skin: No rash or lesions noted MEDICAL DECISION MAKING: Chief Complaint: Chest pain, cough External records reviewed: Reviewed prior cardiovascular testing. No recent cardiac stress test, echocardiograms or cardiac catheterizations noted Factors affecting care: Hypothyroidism Social determinants of health: Denies illicit drugs, endorses occasional marijuana use History obtained from others: none Consults: none unremarkable. MDM Narrative: Patient was initially hemodynamically stable, afebrile and nontoxic-appearing. Exam Symmetric pulses, no focal cardiopulmonary abnormality I considered the following differential diagnosis: ACS, arrhythmia, anemia, electrolyte disturbance, pneumonia, viral URI ALL IMAGES (IF OBTAINED) HAVE BEEN PERSONALLY REVIEWED AND INTERPRETED BY MYSELF. Triage orders were placed secondary to poor department of conditions including high volume and high acuity. Orders included CBC, BMP, troponin, EKG and chest x-ray I have personally reviewed the patient's chest x-ray. Chest x-ray is unremarkable for pulmonary edema, pneumothorax, pneumonia or focal cardiopulmonary abnormality. EKG with normal sinus rhythm rate of 68, normal axis, normal intervals, no STEMI, no signs of pericarditis, no WPW or ARVD BMP without evidence of significant electrolyte abnormalities, no anion gap, no acute kidney injury. High-sensitivity troponin is negative, no evidence of myocardial ischemia Awaiting delta troponin... Delta troponin also negative. The synthesis of the patient's history, physical exam, labs images suggest no acute life-limiting etiology. Unclear etiology however does not appear to be life-threatening based on patient's negative labs and images The patient and/or family, caregivers express understanding. The patient and/or family, caregivers agrees with the plan. Shared decision making: I will have a discussion with the patient and or visitors regarding risk/benefits of further testing or admission. They will be made aware of of the risk/benefits inherent in this decision they will be given the opportunity to voice understanding. Total critical care time today provided was at least 0 minutes. This excludes separately billable procedures. Critical care time (if documented) is secondary to the patient having high probability of clinically significant/life threatening deterioration in the patient's condition which required my urgent intervention. Impression: 1. Chest pain 2. History of hypothyroidism Dispo: Discharge home This note was generated with [employer] dictation software. It may contain incorrect words, spelling, and punctuation that were not noted in review of the chart prior to signing. Lab Data Labs: Laboratory Results - last 24 hr 08/17/24 08/17/24 13:45 15:46 WBC 8.0 RBC 4.69 Hgb 15.0 Hct 43.7 MCV 93.2 MCH 32.0 MCHC 34.3 RDW Std Deviation 42.5 RDW Coeff of Bj 12.5 Plt Count 121 L MPV 10.9 Immature Gran % (Auto) 0.500 Neut % (Auto) 48.1 Lymph % (Auto) 42.3 H [place] % (Auto) 6.5 Eos % (Auto) 2.1 Baso % (Auto) 0.5 Absolute Neuts (auto) 3.8 Absolute Lymphs (auto) 3.36 Nucleated RBC % 0 Sodium 142 Potassium 3.4 L Chloride 110 H Carbon Dioxide 27.0 Anion Gap 5 BUN 18 Creatinine 1.07 H Estim Creat Clear Calc 88.92 Est GFR (MDRD) Af Amer 75 Est GFR (MDRD) Non-Af 62 BUN/Creatinine Ratio 16.8 Glucose 77 Calcium 8.6 Troponin I High Sens 3 3 Radiography Diagnostic Testing: Clinical Impression(s) from Imaging Studies Chest X-Ray 08/17/24 13:46 IMPRESSION: No radiographic evidence of acute cardiopulmonary disease Reading Location: [facility] Discharge Plan Triage Chief Complaint: Chest Pain ED Provider: Jerry Camejo Dx/Rx/DC Orders Prescriptions: No Action clonazepam [Klonopin] 0.5 mg tablet 0.5 mg PO BID prazosin 2 mg capsule 4 mg PO QHS topiramate 200 mg capsule,extended release 24hr 400 mg PO DAILY Amour Thyroid 150 mg PO/SL DAILY L norgest/e.estradiol-e.estrad [Ashlyna] 0.15 mg-30 mcg (84)/10 mcg (7) Tablets,Dose Pack,3 Month 1 tab PO DAILY Primary Care Provider: Eladia Moscoso NP Referrals: Eladia Moscoso NP, [employer] [Primary Care Provider] - Print Language: Slovenian
[2024-08-17 14:12] LABS: Anion Gap 5 (5-15); BUN 18 mg/dL (7-18); BUN/Creat Ratio 16.8 RATIO (10-20); Calcium,Total 8.6 mg/dL (8.5-10.1); Chloride 110 mmol/L (98-107); Creatinine, Serum 1.07 mg/dL (0.55-1.02); EST Glomerular Filtration Rate 62 mL/min (>60); Est Glom Filt Rate - Afr Amer 75 mL/min (>60); Estimated Creatinine Clearance 88.92 ml/min; Glucose 77 mg/dL (74-106); Potassium 3.4 mmol/L (3.5-5.1); Sodium Level 142 mmol/L (136-145); Troponin-I HS (w/2H Reflex) 3 pg/mL (3.0-54.0)
[2024-08-17] MEDS: 0.9% Normal Saline (500mL Bag) 500 ML 999 ML IV (14:34)
[2024-08-17 15:51] LABS: Reflex Troponin-HS? (from REC) Y
[2024-08-17 16:32] LABS: Troponin-I HS 3 pg/mL (3.0-54.0)
== END 2024-08-17 17:03 | disposition home or self-care (01) ==
PROVIDERS: Emergency Provider Emergency Medicine; PCP Registered Nurse; Visit Provider Emergency Medicine
DX: R07.9 Chest pain, unspecified (principal); G40.909 Epilepsy, unspecified, not intractable, without status epilepticus; E03.9 Hypothyroidism, unspecified; Z79.899 Other long term (current) drug therapy; Z90.49 Acquired absence of other specified parts of digestive tract; F17.210 Nicotine dependence, cigarettes, uncomplicated
CPT/HCPCS: 71045; 80048; 84484; 85025; 93005; 96360; 99284; A4216

== ENCOUNTER 2024-09-13 14:18 | Outpatient (CLI) | payer MEDICAID, SELFPAY ==
[2024-09-13 15:10] LABS: Absolute Lymphocyte Count 1.76 X10^3/uL (0.83-4.51); Absolute Neutrophil Count 4.4 X10^3/uL (2.0-7.7); Basophil# 0.04 X10^3/uL; Basophil% 0.6 % (0-1); Eosinophil# 0.22 X10^3/uL; Eosinophils% 3.2 % (0-5); Hematocrit 44.1 % (37-47); Hemoglobin 15.3 g/dL (12.0-15.0); Lymphocyte # 1.76 X10^3/ul (0.83-4.51); Lymphocyte % 25.9 % (19-41); Mean Corp Hgb Conc 34.7 g/dL (32-36); Mean Corpuscular Hgb 31.7 pg (27.0-32.0); Mean Corpuscular Volume 91.5 fL (81-99); Mean Platelet Vol. 11.2 fl (6.2-12.0); Monocyte# 0.36 X10^3/uL; Monocyte% 5.3 % (0-10); NRBC Flagged by Analyzer 0 % (0-5); Neutrophil # 4.41 X10^3/uL (2.7-7.7); Neutrophil % 64.9 % (47-70); Platelet Count 154 K/mm3 (150-450); RBC Distribution Width CV 11.9 % (11.6-14.6); RBC Distribution Width SD 39.8 fl (35.1-43.9); Red Blood Count 4.82 M/mm3 (4.2-5.4); White Blood Count 6.8 K/mm3 (4.4-11.0)
[2024-09-13 15:30] LABS: International Normalized Ratio 1.1; Prothrombin Time (Protime)PT. 13.9 SECONDS (11.7-14.9)
[2024-09-13 16:29] LABS: Hepatitis B Surface Antibody Nonreactive; Hepatitis B Surface Antigen Nonreactive (Nonreactive); Hepatitis C Antibody Nonreactive (Nonreactive)
[2024-09-15 06:20] LABS: Hepatitis A AB, Total Negative (Negative); Hepatitis B Core Ab Total Negative (Negative)
== END 2024-09-13 23:59 | disposition home or self-care (01) ==
PROVIDERS: PCP Registered Nurse; Referring Provider Nurse Practitioner Acute Care; Visit Provider Nurse Practitioner Acute Care
DX: D75.839 Thrombocytosis, unspecified (principal)
CPT/HCPCS: 36415; 85025; 85610; 86704; 86706; 86708; 86803; 87340

== ENCOUNTER → 2024-09-16 | Outpatient (CLI) | payer MEDICAID, SELFPAY ==
--- NOTE | 2024-09-16 08:10 | US_ITS ---
PROCEDURE: ABDOMEN LIMITED (USABDL), 09/16/2024 REASON FOR EXAM: THROMBOCYTOPENIA COMPARISON: 11/02/2020; note only the images are available for review, the report is not available at the time of dictation FINDINGS: Exam is slightly limited by shadowing bowel gas. Liver: Unremarkable. 14.3 cm in length. Gallbladder: Surgically absent. Biliary tree: Unremarkable. CBD measures 4 mm. Pancreas: Partially obscured by shadowing bowel gas, grossly unremarkable as visualized. Right kidney: Unremarkable. 8.7 cm in length. Other: No visualized free fluid. US/Abdomen Limited IMPRESSION: 1. No acute or suspicious findings. 2. Cholecystectomy without biliary dilatation. 3. Additional description as above. Reading Location: [id number]
== END | disposition home or self-care (01) ==
LOC: OPUS 08:09
PROVIDERS: PCP Registered Nurse; Referring Provider Nurse Practitioner Acute Care; Visit Provider Nurse Practitioner Acute Care
DX: D75.839 Thrombocytosis, unspecified (principal); R10.13 Epigastric pain; R11.0 Nausea
CPT/HCPCS: 76705

== ENCOUNTER 2024-09-30 08:48 | Day surgery (SDC) | payer MEDICAID, SELFPAY ==
--- NOTE | 2024-09-28 15:01 | PAT.ANE_ITS ---
Pre-Assessment Diagnosis/Proposed Procedure Planned Operative Procedure(s): EGD Anesthesia History Anesthesia History - clinical science liaison: Anesthesia History - clinical science liaison Hx Hospitalization No 09/27/24 13:23 Any Problems With Anesthesia No 09/27/24 13:23 Cholinesterase deficiency No 09/27/24 13:23 You/Your Family Experience No 09/27/24 13:23 fever (hyperthermia) with Relationship Recent Exposure to Contagious No 11/20/20 06:57 Disease Does patient have nerve No 09/27/24 13:23 stimulator Patient instructed to have device shut off --Does patient have Pacemaker or ICD? When Was Last Pacemaker Check QUESTION #4 FULL TEXT: You/Your Family Experience fever (hyperthermia) with Anesthesia Last Oral Intake Last Oral intake: Last Oral Intake NPO since Meds taken in AM with sips of water? Meds patient instructed to take am of surgery PONV PONV - clinical science liaison: PONV - clinical science liaison Female Yes 09/27/24 13:23 HX of Motion Sickness No 09/27/24 13:23 HX of N/V After Surgery No 09/27/24 13:23 Non-Smoker No 09/27/24 13:23 Duration of Surgery greater No 09/27/24 13:23 than 60 minutes Number of Risk Factors 1 09/27/24 13:23 PONV Score Low Risk 09/27/24 13:23 Height & Weight Height & Weight: Anesthesia: Height & Weight Height 5 ft 6 in 09/13/24 13:43 Respiratory Assessment Respiratory Assessment - clinical science liaison: Respiratory Tract Infection Hx - clinical science liaison Hx Respiratory Tract Infection No 09/27/24 13:23 STOP Sleep Apnea STOP Sleep Apnea - clinical science liaison: STOP Sleep Apnea - clinical science liaison Hx Hypertension No 09/27/24 13:23 Hx Sleep Apnea No 09/27/24 13:23 CPAP BIPAP Do you snore loudly (louder No 09/27/24 13:23 than talking or can be heard Do you often feel tired/ No 09/27/24 13:23 fatigued/ sleepy during daytime? Has anyone observed you stop No 09/27/24 13:23 breathing during sleep? STOP Results Negative 09/27/24 13:23 QUESTION #5 FULL TEXT : Do you snore loudly (louder than talking or can be heard through closed doors)? 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 Specify any problems Hx of Preganancy in last 3 No 09/27/24 13:23 Months Nurse Filling Out Transfusion EHNOVI 09/27/24 13:23 & Questions: Date: 09/27/24 09/27/24 13:23 Time: 13:39 09/27/24 13:23 Patient unable to answer at this time (ie. confused, unrespo /Reproduction History /Reproductive History - clinical science liaison: /Reproductive Hx- clinical science liaison Hx Now No 09/27/24 13:23 Gestational Age (in weeks): EDC: Hx Hx Para Hx Section SAB No 09/27/24 13:23 PFSH Medical History (Updated 09/27/24 @ 13:37 by Yun Lo) History of renal disease Dietary restriction History of IBS Heartburn History of echocardiogram Wears glasses Wears dentures Thyroid disease Low iron Easy bruising Excessive bleeding Migraine headache Injury of head and neck Seizures History of colitis History of hiatal hernia Gastric reflux Smoker Leg cramps History of edema Hx of sebaceous cyst Hypothyroidism Seizure Hx of hearing loss Headache Gastrointestinal allergy syndrome PTSD (post-traumatic stress disorder) Hx of back injury Hx: UTI (urinary tract infection) Home Medications ?Medication ?Instructions ?Recorded ?Last Taken ?Type Amour Thyroid 80 mg PO/SL DAILY 11/13/20 0 11/20/20 History clonazepam 0.5 mg tablet (Klonopin) 1 mg PO BID Unknown History dicyclomine 20 mg tablet 20 mg PO BID PRN abdominal p ain 09/13/24 Unknown Hist ory magnesium glycinate 300 mg PO QDAY 09/13/24 Unkn own History omeprazole 40 mg capsule,delayed 40 mg PO BID #180 cap s 09/13/24 Unknown Rx release sertraline 150 mg capsule 150 mg PO QDAY 09/13/24 Unkn own History topiramate 200 mg capsule,extended 100 mg PO DAILY sei zure/migraines 09/13/24 Unknown History release 24 hr trazodone 50 mg tablet 50 mg PO QHS PRN insomnia Unknown History Allergy/AdvReac Type Severity Reaction Status Date / Time amoxicillin AdvReac Severe SEIZURES Verified 09/27/24 13:18 Family History Other Anxiety CVA (cerebral vascular accident) Depression Heart disease Hypertension Surgical History (Updated 09/27/24 @ 13:24 by Yun Lo) History of tubal ligation H/O ovarian cystectomy Hx of colonoscopy History of esophagogastroduodenoscopy (EGD) Hx of cholecystectomy Social History (Updated 09/13/24 @ 14:20 by Joan Grider) Smoking Status: Current some day smoker tobacco type: cigarettes Electronic Cigarette Use: with nicotine second hand exposure: Yes alcohol intake: former substance use type: does not use and former substance user Date of last use: medical marijuana Audit: Pertinent Findings Pertinent Findings EKG Perinent findings: August 17, 2024. Normal sinus rhythm. Echo (EF%) pertinent findings: August 30, 2024. Ejection fraction of 55 to 60%. Right ventricular systolic pressure is 35 mmHg. No aortic stenosis noted. Recommendation Anesthesia Recommendation Anesthesia recommendation: OPTIMIZED for anesthesia
[2024-09-30] VITALS (9 sets, daily range): BP systolic 84–94; BP diastolic 58–65; PULSE 57–70; RESP 16–18; TEMP 36.1–36.6; O2SAT 96–100; BMI 35.9
--- NOTE | 2024-09-30 09:23 | PCM.PRE.AN2 ---
ASA Classification* ASA Classification ASA Classification: 2 Assessment & Plan Anesthesia* Anesthesia Assessment Anesthesia Assessment: Discussed sedation and/or anesthesia options, risks, benefits, and alternatives with patient/parents/legal guardian/POA. Questions invited. The patient/parents/legal guardian/POA seems to understand and agrees to proceed with anesthesia plan. Reviewed the physical assessment, medical history, allergy history and patient home medications list prior to surgery/procedure/anesthetic and documented any changes. Performed airway and anesthesia risk assessments. Anesthesia Type Anesthesia Type: MAC History Source History Obtained from:: Patient and Chart Anesthesia Focused Assessment* Temperature: 97.0 F Pulse Rate: 68 Blood Pressure: 94/58 Respiratory Rate: 18 Pulse Ox: 100 Oxygen Delivery Method: Room Air Airway Assessment Mouth opens: >3 cm Mallampati Score: II Teeth Condition: Dentures (Patient has full upper and lower dentures.) Neck Range of motion (ROM): Limited ROM (Somewhat decreased extension) Focused Labs Anesthesia Preop lab: CBC WBC 6.8 K/mm3 (4.4-11.0) 09/13/24 14:23 09/13/24 RBC 4.82 M/mm3 (4.2-5.4) 09/13/24 14:23 09/13/24 Hgb 15.3 g/dL (12.0-15.0) H 09/13/24 14:23 09/13/24 Hct 44.1 % (37-47) 09/13/24 14:23 09/13/24 Plt Count 154 K/mm3 (150-450) 09/13/24 14:23 09/13/24 CHEMISTRY Potassium 3.4 mmol/L (3.5-5.1) L 08/17/24 13:45 08/17/24 Sodium 142 mmol/L (136-145) 08/17/24 13:45 08/17/24 BUN 18 mg/dL (7-18) 08/17/24 13:45 08/17/24 Creatinine 1.07 mg/dL (0.55-1.02) H 08/17/24 13:45 08/17/24 Glucose 77 mg/dL (74-106) 08/17/24 13:45 08/17/24 TSH < 0.01 uIU/mL (0.358-3.74) L 11/20/20 06:45 11/20/20 COAG PT 13.9 SECONDS (11.7-14.9) 09/13/24 14:23 09/13/24 Urine Test Negative Negative 11/20/20 06:27 11/20/20 Pre-Assessment Diagnosis/Proposed Procedure Planned Operative Procedure(s): EGD Anesthesia History 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 When Was Last Pacemaker Check QUESTION #4 FULL TEXT: You/Your Family Experience fever (hyperthermia) with Anesthesia Last Oral Intake Last Oral intake: Last Oral Intake NPO since 20:30 09/30/24 09:06 Meds taken in AM with sips of No 09/30/24 09:06 water? Meds patient instructed to take am of surgery Any additional information?: Yes Meds taken in AM with sips of water?: Yes PONV PONV - manager business operations: PONV - manager business operations Female Yes 09/27/24 13:23 HX of Motion Sickness No 09/27/24 13:23 HX of N/V After Surgery No 09/27/24 13:23 Non-Smoker No 09/27/24 13:23 Duration of Surgery greater No 09/27/24 13:23 than 60 minutes Number of Risk Factors 1 09/27/24 13:23 PONV Score Low Risk 09/27/24 13:23 Height & Weight Height & Weight: Anesthesia: Height & Weight Height 5 ft 6 in 09/30/24 09:06 Weight: 101 kg 09/30/24 09:06 Body Mass Index (BMI) 35.9 09/30/24 09:06 Respiratory Assessment Respiratory Assessment - manager business operations: Respiratory Tract Infection Hx - manager business operations Hx Respiratory Tract Infection No 09/27/24 13:23 Any additional information?: Yes Hx Respiratory Tract Infection: Yes (Patient has had a chronic cough for couple months) STOP Sleep Apnea STOP Sleep Apnea - manager business operations: STOP Sleep Apnea - manager business operations Hx Hypertension No 09/27/24 13:23 Hx Sleep Apnea No 09/27/24 13:23 CPAP BIPAP Do you snore loudly (louder No 09/27/24 13:23 than talking or can be heard Do you often feel tired/ No 09/27/24 13:23 fatigued/ sleepy during daytime? Has anyone observed you stop No 09/27/24 13:23 breathing during sleep? STOP Results Negative 09/27/24 13:23 QUESTION #5 FULL TEXT : Do you snore loudly (louder than talking or can be heard through closed doors)? Tobacco Use History Tobacco Use History - manager business operations: Tobacco Use History - manager business operations Tobacco Use Cigarettes 11/13/20 12:39 Smoking Status Light Smoker (<10/day) 09/27/24 13:23 Hx Tobacco Use Yes 09/27/24 13:23 Years Smoking Packs Smoked per Day Smoking Cessation Date was within the last 15 years Hx Smoking Cessation Date Hx Smoking Cessation No 09/27/24 13:23 Counseling Any additional information?: Yes Smoking Status: Current every day smoker (Patient smoked today.) Hematologic Medial History Hematologic Hx - manager business operations: Hematologic Medical Hx - bi developer Hx of Blood Transfusion No 09/27/24 13:23 Hx of Transfusion in last 3 No 09/27/24 13:23 Months Date of Last Transfusion (if within last 3 months) Ever experience any problems No 09/27/24 13:23 with transfusion(s)? Specify any problems Hx of Preganancy in last 3 No 09/27/24 13:23 Months Nurse Filling Out Transfusion [facility] 09/27/24 13:23 & Questions: Date: 09/27/24 09/27/24 13:23 Time: 13:39 09/27/24 13:23 Patient unable to answer at this time (ie. confused, unrespo /Reproduction History /Reproductive History - manager business operations: /Reproductive Hx- manager business operations Hx Now No 09/27/24 13:23 Gestational Age (in weeks): EDC: Hx Hx Para Hx Section SAB No 09/27/24 13:23 PFSH Medical History History of renal disease Dietary restriction History of IBS Heartburn History of echocardiogram Wears glasses Wears dentures Thyroid disease Low iron Easy bruising Excessive bleeding Migraine headache Injury of head and neck Seizures History of colitis History of hiatal hernia Gastric reflux Smoker Leg cramps History of edema Hx of sebaceous cyst Hypothyroidism Seizure Hx of hearing loss Headache Gastrointestinal allergy syndrome PTSD (post-traumatic stress disorder) Hx of back injury Hx: UTI (urinary tract infection) Home Medications ?Medication ?Instructions ?Recorded ?Last Taken ?Type Amour Thyroid 80 mg PO/SL DAILY 11/13/20 09/30/24 History clonazepam 0.5 mg tablet (Klonopin) 1 mg PO BID 09/13/24 09/30/24 History dicyclomine 20 mg tablet 20 mg PO BID PRN abdominal pain 09/13/24 Unknown History magnesium glycinate 300 mg PO QDAY 09/13/24 09/29/24 History omeprazole 40 mg capsule,delayed 40 mg PO BID #180 caps 09/13/24 09/29/24 Rx release sertraline 150 mg capsule 150 mg PO QDAY 09/13/24 09/29/24 History topiramate 200 mg capsule,extended 100 mg PO DAILY seizure/migraines 09/13/24 09/30/24 History release 24 hr trazodone 50 mg tablet 50 mg PO QHS PRN insomnia 09/13/24 Unknown History Allergy/AdvReac Type Severity Reaction Status Date / Time amoxicillin AdvReac Severe SEIZURES Verified 09/30/24 09:04 Family History Other Anxiety CVA (cerebral vascular accident) Depression Heart disease Hypertension Surgical History History of tubal ligation H/O ovarian cystectomy Hx of colonoscopy History of esophagogastroduodenoscopy (EGD) Hx of cholecystectomy Social History Smoking Status: Current some day smoker tobacco type: cigarettes Electronic Cigarette Use: with nicotine second hand exposure: Yes alcohol intake: former substance use type: does not use and former substance user Date of last use: medical marijuana Review of Systems (Anesthesia) ROS Narrative System reviewed and no additional complaints, except as documented.
--- NOTE | 2024-09-30 09:45 | EGD_PTH ---
PATIENT: GABRIELLA COLLINS LOC: [facility] U#:[id number] AGE/SX: 34/F ROOM: RE09/30/[address]: Dr. Rosalio Hinkle DO : 1990 BED: DIS: 09/30/2024 SPEC #: [id number] RECD: 09/30/24 13:51 STATUS: ANTON REEverett #: [id number] TI: 09/30/24 09:[address]: Rosalio Hinkle DEPT: SURGICAL PATHOLOGY RECD BY: Blade Terrell ENTERED: 09/30/24 13:51 SP TYPE: EGD BIOPSY DEIRDRE DR: Eladia Moscoso, ASSET PROTECTION ASSISTANT-C Tissues: A - Gastric mucous membrane B - Duodenum, NOS Procedures: Immunohistochemical Stains Surgery Specimen Level IV HEADER OPERATION: EGD PRE-OP DIAGNOSIS: Nausea, epigastric pain TISSUE SUBMITTED: A- Gastric body biopsy, B- Duodenum biopsy MICROSCOPIC DIAGNOSIS A. Stomach, Body, Biopsy: * Oxyntic mucosa with mild chronic inflammation. * IHC negative for H pylori organisms. B. Small Bowel, Duodenum, Biopsy: * Normal villous architecture with Howard gland hyperplasia. * Negative for increased intraepithelial lymphocytes. MICROSCOPIC DESCRIPTION Slides are reviewed. These tests were developed and their performance characteristics determined by [facility]. They may not have been cleared or approved by the U.S. Food and Drug Administration. The FDA has determined that such clearance or approval is not necessary. The above immunohistochemical/dualISH markers are ordered and reviewed by the Pathologist. GROSS DESCRIPTION A. Received in formalin in a container labeled with the patient's name, date of , and biopsy: Gastric body for H. pylori and pathology are 2 li-pink fragments of mucosal tissue measuring 0.6 x 0.3 x 0.3 cm and 0.8 x 0.3 x 0.3 cm. Submitted in toto in A1. B. Received in formalin in a container labeled with the patient's name, date of , and biopsy: Duodenum are 2 li-pink fragments of mucosal tissue measuring 0.2 x 0.2 x 0.2 cm and 0.3 x 0.3 x 0.3 cm. Submitted in toto in B1. [facility] 09-30-2024 CPT:50945a2,74545
--- NOTE | 2024-09-30 09:57 | HP.PCM_ITS ---
HPI - General General Date of Admission: 09/30/24 Date of Service: 09/30/24 Chief Complaint: abdominal pain HPI Narrative GABRIELLA COLLINS, is a 34 F who presents with the Chief Complaint: abdominal pain ER 08/17/2024 [place] Chest x-ray is unremarkable for pulmonary edema, pneumothorax, pneumonia or focal cardiopulmonary abnormality. EKG with normal sinus rhythm rate of 68, normal axis, normal intervals, no STEMI, no signs of pericarditis, no WPW or ARVD BMP without evidence of significant electrolyte abnormalities, no anion gap, no acute kidney injury. High-sensitivity troponin is negative, no evidence of myocardial ischemia Omeprazole 40mg once day for the past month and denies any improvement in pain - pain can radiate through to her back - CCX early - she reports GB pain was different from current pain ER 09/09 [place] - [place] 09/09/2024 Left ovarian cyst measuring up to 2.5 cm. (IV contrast only) - for same epigastric pain - diarrhea, watery stool for 3 days - nausea w/o emesis - she reports labs were normal - reports occasional use of NSAIDS - states she is now constipated - last BM was this past Friday and has been taking Miralax since Friday - states she eels very bloated - EGD 3 years ago - bile gastritis - never treated - denies any weight loss - dicyclomine helps with pain but causes drowsiness - Labs show PLT 115-148 - transaminases normal - reports she has not had any EtOH in the past year - states she was only drinking 1-2 beers on the weekend - she quit drinking a year ago I wanted to change my life around - no longer using medical marijuana satya 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> Date Bertha Michael Signature: Date (if applicable) CC: ~ PFSH Medical History History of renal disease Dietary restriction History of IBS Heartburn History of echocardiogram Wears glasses Wears dentures Thyroid disease Low iron Easy bruising Excessive bleeding Migraine headache Injury of head and neck Seizures History of colitis History of hiatal hernia Gastric reflux Smoker Leg cramps History of edema Hx of sebaceous cyst Hypothyroidism Seizure Hx of hearing loss Headache Gastrointestinal allergy syndrome PTSD (post-traumatic stress disorder) Hx of back injury Hx: UTI (urinary tract infection) Home Medications ?Medication ?Instructions ?Recorded ?Last Taken ?Type Amour Thyroid 80 mg PO/SL DAILY 11/13/20 0 09/30/24 History clonazepam 0.5 mg tablet (Klonopin) 1 mg PO BID 09/30/24 History dicyclomine 20 mg tablet 20 mg PO BID PRN abdominal p ain 09/13/24 Unknown History magnesium glycinate 300 mg PO QDAY 09/13/2408/24 History omeprazole 40 mg capsule,delayed 40 mg PO BID #180 cap s 09/13/24 09/29/24 Rx release sertraline 150 mg capsule 150 mg PO QDAY 09/13/2408/24 History topiramate 200 mg capsule,extended 100 mg PO DAILY sei zure/migraines 09/13/24 09/30/24 History release 24 hr trazodone 50 mg tablet 50 mg PO QHS PRN insomnia Unknown History Allergy/AdvReac Type Severity Reaction Status Date / Time amoxicillin AdvReac Severe SEIZURES Verified 09/30/24 09:04 Family History Other Anxiety CVA (cerebral vascular accident) Depression Heart disease Hypertension Surgical History History of tubal ligation H/O ovarian cystectomy Hx of colonoscopy History of esophagogastroduodenoscopy (EGD) Hx of cholecystectomy Social History Smoking Status: Current every day smoker (Patient smoked today.) tobacco type: cigarettes Electronic Cigarette Use: with nicotine second hand exposure: Yes alcohol intake: former substance use type: does not use and former substance user Date of last use: medical marijuana ROS Constitutional Constitutional: Denies fatigue, fever(s), poor appetite, weight gain or weight loss Gastrointestinal Gastrointestinal: Denies belching, bloating, change in bowel habits, change in stool character, chewing difficulty, coffee ground emesis, constipation, cramping, diarrhea, dyspepsia, dysphagia, early satiety, excessive flatus, fecal incontinence, heartburn, hematemesis, hematochezia, hemorrhoids, loose stools, melena, nausea, odynophagia, rectal bleeding, tenesmus, vomiting or weight changes Vital Signs Vital Signs Vital Signs: 09/30/24 09:06 09/30/24 09:06 09/30/24 09:29 Temperature 97.0 F L 97.0 F L Temperature Source Temporal Pulse Rate 68 68 Respiratory Rate 18 18 Respiratory Pattern Normal Blood Pressure 94/58 L 94/58 L Blood Pressure Mean 70 Blood Pressure Source Monitor Blood Pressure Position Semi-Fowlers Blood Pressure Location Left Arm Pulse Ox 100 100 Oxygen Delivery Method Room Air Room Air Weight Weight: 222 lb 10.67 oz Body Mass Index (BMI) 35.9 Physical Exam Const alert, oriented x3, no apparent distress and healthy appearing General Appearance: cooperative GI normal to inspection, nondistended, normoactive bowel sounds, soft to palpation, non-tender and non-distended Percussion: normal to percussion Rectal Exam: deferred Assessment & Plan Assessment/Plan (1) Nausea: (2) Epigastric pain: PLAN: Assessment and Plan Assessment and Plan (1) Thrombocythemia: Status: Acute (2) Epigastric pain: Status: Acute (3) Nausea: Status: Acute Orders: Orders CBC W/Diff, Automated Today D75.839 - Thrombocytosis, unspecified Prothrombin Time w/INR Today D75.839 - Thrombocytosis, unspecified Hepatitis A AB, Total Today D75.839 - Thrombocytosis, unspecified Hepatitis B Core Ab Total Today D75.839 - Thrombocytosis, unspecified Hepatitis B Surface Antibody Today D75.839 - Thrombocytosis, unspecified Hepatitis B Surface Antigen Today D75.839 - Thrombocytosis, unspecified Hepatitis C Antibody Today D75.839 - Thrombocytosis, unspecified Abdomen Limited Today D75.839 - Thrombocytosis, unspecified, R10.13 - Epigastric pain, R11.0 - Nausea Miscellaneous Lab Procedure Today D75.839 - Thrombocytosis, unspecified, R10.13 - Epigastric pain, R11.0 - Nausea Medications: New omeprazole take 30 minutes before breakfast and dinner 40 mg PO BID 180 caps 0RF Discontinued omeprazole Discontinued Reason: Order Changed 40 mg PO QDAY Plan 34y/o female presents for consultation with complaints of epigastric abdominal pain was seen in the emergency department on 08/17/2024 and again on 09/09. On 08/17/2024 she was seen in [place] ED with c/o constant epigastric pain that radiates into the chest and worsens with PO intake. Denies any improvement with Omeprazole 40mg daily x1 month. She was seen in ED at [facility] on 09/09/2024 with complaints of epigastric pain and diarrhea. CT revealed a left ovarian cyst, otherwise unremarkable. CBC, CMP and Lipase were unremarkable exc ept for thrombocytopenia (115-148). She denies any alcoohl in the past year. In terms of epigastric pain, I have increased PPI to BID and scheduled her for an EGD. In terms of thrombocytopenia, I have ordered additional labs and an ABD US. Patient Instructions: Increase PPI to BID
--- NOTE | 2024-09-30 10:20 | OP.EGD_ITS ---
Patient Name: Jenifer Elliott Procedure Date: 09/30/2024 9:56 AM Date of : 1990 Age: 34 Procedure: Upper GI endoscopy Indications: Epigastric abdominal pain, Functional Dyspepsia, Failure to respond to medical treatment Providers: Rosalio Hinkle DO Referring MD: Theresa Mclean Medicines: Monitored Anesthesia Care Patient Profile: This is a 34 year old female. Refer to note in patient chart for documentation of history and physical. Patient has symptoms. Complications: No immediate complications. Procedure: Pre-Anesthesia Assessment: - Prior to the procedure, a History and Physical was performed, and patient medications and allergies were reviewed. The patient is competent. The risks and benefits of the procedure and the sedation options and risks were discussed with the patient. All questions were answered and informed consent was obtained. Patient identification and proposed procedure were verified by the physician in the pre-procedure area. Mental Status Examination: alert and oriented. Airway Examination: normal oropharyngeal airway and neck mobility. Respiratory Examination: clear to auscultation. CV Examination: normal. Prophylactic Antibiotics: The patient does not require prophylactic antibiotics. Prior Anticoagulants: The patient has taken no anticoagulant or antiplatelet agents except for NSAID medication. ASA Grade Assessment: II - A patient with mild systemic disease. After reviewing the risks and benefits, the patient was deemed in satisfactory condition to undergo the procedure. The anesthesia plan was to use monitored anesthesia care (MAC). Immediately prior to administration of medications, the patient was re-assessed for adequacy to receive sedatives. The heart rate, respiratory rate, oxygen saturations, blood pressure, adequacy of pulmonary ventilation, and response to care were monitored throughout the procedure. The physical status of the patient was re-assessed after the procedure. After obtaining informed consent, the endoscope was passed under direct vision. Throughout the procedure, the patient's blood pressure, pulse, and oxygen saturations were monitored continuously. The Endoscope was introduced through the mouth, and advanced to the third part of the duodenum. Small bowel enteroscopy was deemed necessary. The upper GI endoscopy was accomplished without difficulty. The patient tolerated the procedure well. Scope In: 10:08:24 AM Scope Out: 10:13:56 AM Total Procedure Duration Time 0 hours 5 minutes 32 seconds Findings: The examined esophagus was normal. Patchy mildly erythematous mucosa without bleeding was found in the gastric body. Biopsies were taken with a cold forceps for histology. Verification of patient identification for the specimen was done. Estimated blood loss was minimal. Biopsies were taken with a cold forceps for Helicobacter pylori testing. Verification of patient identification for the specimen was done. Estimated blood loss was minimal. Patchy mildly erythematous mucosa without active bleeding and with no stigmata of bleeding was found in the duodenal bulb and in the first portion of the duodenum. Biopsies were taken with a cold forceps for histology. Verification of patient identification for the specimen was done. Estimated blood loss was minimal. Impression: - Normal esophagus. - Erythematous mucosa in the gastric body. Biopsied. - Erythematous duodenopathy. Biopsied. Recommendation: - Discharge patient to home. - Resume previous diet. - Continue present medications. - Await pathology results. Procedure Code(s): --- Professional --- 44476, Small intestinal endoscopy, enteroscopy beyond second portion of duodenum, not including ileum; with biopsy, single or multiple CPT copyright 2021 [employer]. All rights reserved. The codes documented in this report are preliminary and upon cable mechanic review may be revised to meet current compliance requirements. Rosalio Hinkle DO 09/30/2024 10:20:11 AM This report has been signed electronically. Number of Addenda: 0 Note Initiated On: 09/30/2024 9:56 AM
--- NOTE | 2024-09-30 10:21 | OP.CCLET_ITS ---
09/30/2024 Theresa Mclean Re : Upper GI endoscopy procedure for Jenifer Elliott Dear Danis This procedure was performed on September. My impressions and recommendations are as follows: Impressions : - Normal esophagus. - Erythematous mucosa in the gastric body. Biopsied. - Erythematous duodenopathy. Biopsied. Recommendations : - Discharge patient to home. - Resume previous diet. - Continue present medications. - Await pathology results. My findings are described in the full procedure note, which is enclosed. If I can be of further assistance, please feel free to contact me at . Sincerely, Rosalio Hinkle DO 09/30/2024 10:20:11 AM This report has been signed electronically.
--- NOTE | 2024-09-30 10:23 | PCM.POST.ANE ---
Anesthesia: Postop Eval I Current Vital Signs Temperature: 97.1 F Pulse Rate: 67 Blood Pressure: 84/58 Respiratory Rate: 16 Pulse Ox: 97 Oxygen Delivery Method: Room Air Assessment Airway patent: Yes Spontaneous unlabored respirations: Yes Mental status: Asleep nausea: No Vomiting: No Anesthesia Complication: No Fluid Hydration Crystalloid volume administer (ml): 30 Total IV fluid infused: 30 Progress Note Anesthesia document: Postop Eval 1 completed: Yes
--- NOTE | 2024-09-30 13:46 | PCM.POSTANE2 ---
Anesthesia Postop Eval I Sum Postop Eval Completion status Anesthesia document: Postop Eval 1 completed: Yes Anesthesia Postop Eval I Summary Anesthesia Postop Eval I Summary: Anesthesia Postop Eval I: Assessment Summary Airway patent Yes 09/30/24 10:24 [email or web address] Spontaneous unlabored Yes 09/30/24 10:24 [email or web address] respirations Mental status Asleep 09/30/24 10:24 [email or web address] nausea No 09/30/24 10:24 [email or web address] Vomiting No 09/30/24 10:24 [email or web address] Anesthesia Postop Eval I: Fluid Summary Crystalloid volume administer 30 09/30/24 10:24 [email or web address] (ml) Colloids volume administered ( ml) Blood Product volume administered (ml) Total IV fluid infused 30 09/30/24 10:24 [email or web address] Anesthesia Postop Eval I: Summary Notes Anesthesia Complication No 09/30/24 10:24 [email or web address] Anesthesia Complication Comment: Post-operative progress note Anesthesia: Postop Eval II Evaluation Mental status: Awake and Calm Pain Level: 0 nausea: No Vomiting: No Complications Anesthesia Complication: No
== END 2024-09-30 11:02 | disposition home or self-care (01) ==
LOC: EN 08:49 → AC 08:50
PROVIDERS: PCP Registered Nurse; Referring Provider Registered Nurse; Visit Provider Internal Medicine Gastroenterology
PROC: 0DJ08ZZ Inspection of Upper Intestinal Tract, Via Natural or Artificial Opening Endoscopic (ICD-10-PCS; CPT 43235; principal; 2024-09-30 09:40)
DX: R11.0 Nausea (principal); R10.13 Epigastric pain; F43.10 Post-traumatic stress disorder, unspecified; K21.9 Gastro-esophageal reflux disease without esophagitis; Z79.899 Other long term (current) drug therapy; Z98.51 Tubal ligation status; Z90.6 Acquired absence of other parts of urinary tract; Z90.49 Acquired absence of other specified parts of digestive tract; F17.290 Nicotine dependence, other tobacco product, uncomplicated; K31.89 Other diseases of stomach and duodenum; K29.50 Unspecified chronic gastritis without bleeding
CPT/HCPCS: 43239; 88305; 88342; A4216; J2405

== ENCOUNTER → 2024-10-20 | Outpatient (CLI) | payer MEDICAID, SELFPAY ==
[2024-10-20 17:04] LABS: Ferritin 106 ng/mL (22-378); Iron 33 ug/dL (50-170); Iron Binding Capacity,Total 272 ug/dL (250-450); Iron Binding Capacity,Unsat 239 ug/dL (228-428)
== END | disposition home or self-care (01) ==
PROVIDERS: PCP Registered Nurse; Referring Provider Nurse Practitioner Acute Care; Visit Provider Nurse Practitioner Acute Care
DX: D58.2 Other hemoglobinopathies (principal); R10.13 Epigastric pain; D75.839 Thrombocytosis, unspecified
CPT/HCPCS: 36415; 82728; 83540; 83550

== ENCOUNTER → 2025-02-03 | Outpatient (CLI) | payer MEDICAID, SELFPAY ==
--- NOTE | 2025-02-03 12:00 | NM_ITS ---
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 Cholecystectomy approximately 11 years ago. TECHNIQUE: Intravenous Choletec with planar imaging of the abdomen. RADIOPHARMACEUTICAL: 5.5 mCi technetium 99 M mebrofenin intravenous. FINDINGS: There is satisfactory hepatic uptake and excretion.. Small bowel activity is seen by the 8 minute film. Previous cholecystectomy. NM/Hepatobilliary Imaging IMPRESSION: No evidence of common duct obstruction. Negative hepatobiliary scan for a patient with prior cholecystectomy. Reading Location: [place] [address]
--- NOTE | 2025-02-03 12:00 | NM_ITS ---
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 Cholecystectomy approximately 11 years ago. TECHNIQUE: Intravenous Choletec with planar imaging of the abdomen. RADIOPHARMACEUTICAL: 5.5 mCi technetium 99 M mebrofenin intravenous. FINDINGS: There is satisfactory hepatic uptake and excretion.. Small bowel activity is seen by the 8 minute film. Previous cholecystectomy. NM/Hepatobilliary Imaging IMPRESSION: No evidence of common duct obstruction. Negative hepatobiliary scan for a patient with prior cholecystectomy. Reading Location: [place] [address]
== END | disposition home or self-care (01) ==
PROVIDERS: PCP Registered Nurse; Referring Provider Nurse Practitioner Acute Care; Visit Provider Nurse Practitioner Acute Care
DX: Z90.49 Acquired absence of other specified parts of digestive tract (principal)
CPT/HCPCS: 78226; A9537